=== PATIENT | female | born 1945 | race Hispanic/Latino ===

== ENCOUNTER → 2018-01-05 | Outpatient (CLI) | payer OTHER | END | disposition home or self-care (01) | LOC: RAH 15:07 | PROVIDERS: ATTEND Internal Medicine | DX: Z12.31 Encounter for screening mammogram for malignant neoplasm of breast (principal) | CPT/HCPCS: 77067 ==

== ENCOUNTER → 2018-03-03 | Outpatient (CLI) | payer OTHER | END | disposition home or self-care (01) | LOC: RAH 13:13 | PROVIDERS: ATTEND Internal Medicine | DX: I11.9 Hypertensive heart disease without heart failure (principal); R05 Cough; I70.0 Atherosclerosis of aorta; M47.815 Spondylosis without myelopathy or radiculopathy, thoracolumbar region; Z77.090 Contact with and (suspected) exposure to asbestos | CPT/HCPCS: 71046 ==

== ENCOUNTER → 2019-01-13 | Outpatient (CLI) | payer OTHER | END | disposition home or self-care (01) | LOC: RAH 14:39 | PROVIDERS: ATTEND Internal Medicine | DX: Z12.31 Encounter for screening mammogram for malignant neoplasm of breast (principal) | CPT/HCPCS: 77067 ==

== ENCOUNTER → 2019-10-05 | Outpatient (CLI) | payer OTHER | END | disposition home or self-care (01) | LOC: OIH 10:46 | PROVIDERS: ATTEND Internal Medicine | DX: R06.00 Dyspnea, unspecified (principal); M47.814 Spondylosis without myelopathy or radiculopathy, thoracic region; I70.0 Atherosclerosis of aorta | CPT/HCPCS: 71046 ==

== ENCOUNTER → 2019-10-08 | Outpatient (CLI) | payer OTHER | END | disposition home or self-care (01) | LOC: RAH 09:09 | PROVIDERS: ATTEND Internal Medicine | DX: I08.0 Rheumatic disorders of both mitral and aortic valves (principal); I25.10 Atherosclerotic heart disease of native coronary artery without angina pectoris; R06.00 Dyspnea, unspecified; E78.5 Hyperlipidemia, unspecified; I11.9 Hypertensive heart disease without heart failure | CPT/HCPCS: 93306; 93356 ==

== ENCOUNTER 2023-04-17 07:28 | Day surgery (SDC) | payer OTHER ==
[~2023-04-17] VITALS: Ht 121.9 cm; Wt 54.9 kg
[2023-04-17] VITALS (11 sets, daily range): BP systolic 103–183; BP diastolic 40–65; PULSE 53–65; RESP 12–20
[2023-04-17] MEDS ORDERED: LEVO25CA4 PO (08:02)
[2023-04-17] MEDS ORDERED: ATOR40TA69 PO (08:02)
[2023-04-17] MEDS ORDERED: ASPI-1005 PO (08:02)
[2023-04-17] MEDS ORDERED: ATEN25TA PO (08:02)
[2023-04-17] MEDS ORDERED: EZET10TA48 PO (08:02)
[2023-04-17] MEDS ORDERED: ISOS30TA92 PO (08:02)
[2023-04-17] MEDS ORDERED: MULT-1290 PO (08:02)
[2023-04-17] MEDS ORDERED: [UNRECOGNIZED DRUG - CODE] PO (08:02)
[2023-04-17] MEDS ORDERED: PANT40GR PO (08:02)
[2023-04-17] MEDS ORDERED: DENO60DI SQ (08:02)
[2023-04-17] MEDS: 0.9%NACL 1000ML 1,000 ML IV ONE (08:08)
[2023-04-17] MEDS ORDERED: PROPOFOL 10 MG/ML 20ML VIAL IV ONE (09:57)
== END 2023-04-17 11:30 | disposition home or self-care (01) ==
LOC: ENDO 07:28 → DAH 07:28 → ENDO 11:30
PROVIDERS: ATTEND Internal Medicine Gastroenterology
DX: Z12.11 Encounter for screening for malignant neoplasm of colon (principal); K57.30 Diverticulosis of large intestine without perforation or abscess without bleeding; K29.50 Unspecified chronic gastritis without bleeding; K21.9 Gastro-esophageal reflux disease without esophagitis; I10 Essential (primary) hypertension; E78.5 Hyperlipidemia, unspecified; E03.9 Hypothyroidism, unspecified; M81.0 Age-related osteoporosis without current pathological fracture; M19.90 Unspecified osteoarthritis, unspecified site; F41.9 Anxiety disorder, unspecified; R10.10 Upper abdominal pain, unspecified; R11.2 Nausea with vomiting, unspecified; R07.9 Chest pain, unspecified; Z86.010 Personal history of colon polyps; Z82.49 Family history of ischemic heart disease and other diseases of the circulatory system; Z83.3 Family history of diabetes mellitus; Z80.9 Family history of malignant neoplasm, unspecified; Z79.82 Long term (current) use of aspirin; Z79.899 Other long term (current) drug therapy; Z79.890 Hormone replacement therapy; Z98.891 History of uterine scar from previous surgery; Z98.890 Other specified postprocedural states
CPT/HCPCS: 43239; J7030 ×2; J2704; A4620; G0105; A4215; A4223; A4657; A7002; A4222; A4221; A4663; A4606; 45378; G0121; J3490

== ENCOUNTER 2024-07-29 07:26 | Day surgery (SDC) | payer OTHER ==
[~2024-07-29] VITALS: Ht 142.2 cm; Wt 58.5 kg
[2024-07-29] VITALS (11 sets, daily range): BP systolic 107–168; BP diastolic 48–58; PULSE 47–64; RESP 15–18; TEMP 97.5–97.9
[~2024-07-29 07:26] MED LIST: 0.9%NACL 1000ML 1,000 ML IV ONE; AMLO2.5T4 PO; APIX2.5T PO; ASPI-1005 PO; ATOR40TA69 PO; ESOM40CA66 PO; EZET10TA48 PO; FAMO40TA7 PO; FLUT1BLS3 IH; LEVO50CA5 PO; MAGN200T4 PO; METO-391 PO
[2024-07-29] MEDS ORDERED: proPOFol 10 MG/ML 20ML VIAL IV ONE (10:37)
== END 2024-07-29 12:07 | disposition home or self-care (01) ==
LOC: SUH 07:26 → DAH 07:26 → SUH 12:07
PROVIDERS: ATTEND Internal Medicine Gastroenterology
DX: R10.13 Epigastric pain (principal); K29.50 Unspecified chronic gastritis without bleeding; K21.9 Gastro-esophageal reflux disease without esophagitis; K44.9 Diaphragmatic hernia without obstruction or gangrene; K31.A11 Gastric intestinal metaplasia without dysplasia, involving the antrum; R13.10 Dysphagia, unspecified; I10 Essential (primary) hypertension; F41.9 Anxiety disorder, unspecified; E78.5 Hyperlipidemia, unspecified; E03.9 Hypothyroidism, unspecified; M81.0 Age-related osteoporosis without current pathological fracture; M19.90 Unspecified osteoarthritis, unspecified site; Z79.82 Long term (current) use of aspirin; Z79.01 Long term (current) use of anticoagulants; Z79.899 Other long term (current) drug therapy; Z98.890 Other specified postprocedural states; Z86.73 Personal history of transient ischemic attack (TIA), and cerebral infarction without residual deficits
CPT/HCPCS: 43239; 43248; J7030; J2704; A4620; A4215 ×2; A4223; A4222; A4221; A4663; A4606; J3490

== ENCOUNTER → 2025-01-06 | Outpatient (CLI) | payer OTHER ==
[~2025-01-06] MED LIST changes: -0.9%NACL 1000ML 1,000 ML IV ONE; -EZET10TA48 PO; +EZET10TA80 PO
== END | disposition home or self-care (01) ==
LOC: RAH 08:13
PROVIDERS: ATTEND Family Medicine
DX: Z12.31 Encounter for screening mammogram for malignant neoplasm of breast (principal)
CPT/HCPCS: 77067